=== PATIENT | female | born 1975 | race Caucasian/White ===

== ENCOUNTER 2018-01-18 06:23 | Inpatient (IN) | payer OTHER ==
[2018-01-18] MEDS ORDERED: LIDOCAINE 2% (SDV) 5 ML INJ (06:26)
[2018-01-18] MEDS ORDERED: GLYCOPYRROLATE 0.4 MG INJ (06:26)
[2018-01-18] MEDS ORDERED: ROCURONIUM 50 MG INJ (06:26)
[2018-01-18] MEDS ORDERED: MIDAZOLAM 1 MG/ML 2 ML INJ (06:26)
[2018-01-18] MEDS ORDERED: PROPOFOL 20 ML (06:26)
[2018-01-18] MEDS ORDERED: FENTAnyl 50 MCG/ML VIAL ×2 (06:26→11:22)
[2018-01-18] MEDS ORDERED: NEOSTIGMINE 3 MG/3 ML SYRINGE (06:26)
[2018-01-18] MEDS ORDERED: ATROPINE 1 MG/10 ML SYRINGE IV ×2 (06:30→11:30)
[2018-01-18] MEDS ORDERED: OXYCODONE/ACETAMINOPHEN (5/325) TAB PO ×4 (06:30→11:30)
[2018-01-18] MEDS ORDERED: FENTAnyl 50 MCG/ML VIAL IV ×3 (06:30→11:30)
[2018-01-18] MEDS ORDERED: HYDROmorphONE (0.2 MG/ML) 10ML SYG IV ×6 (06:30→11:30)
[2018-01-18] MEDS ORDERED: DIPHENHYDRAMINE 50 MG INJ IV ×2 (06:30→12:00)
[2018-01-18] MEDS ORDERED: morphine (1 MG/ML) 10ML SYRINGE IV ×6 (06:30→11:30)
[2018-01-18] MEDS ORDERED: hydrALAzine 20 MG INJ IV ×2 (06:30→11:30)
[2018-01-18] MEDS ORDERED: EPHEDrine SULFATE 50 MG/5 ML SYG IV ×2 (06:30→11:30)
[2018-01-18] MEDS ORDERED: ONDANSETRON 4 MG INJ IV ×2 (06:30→11:30)
[2018-01-18] MEDS ORDERED: LABETALOL HCL 20MG INJ IV ×2 (06:30→11:30)
[2018-01-18] MEDS ORDERED: MIDAZOLAM 1 MG/ML 2 ML INJ IV ×2 (06:30→12:00)
[2018-01-18] MEDS ORDERED: MEPERIDINE 25 MG INJ IV ×2 (06:30→11:30)
[2018-01-18] MEDS ORDERED: DEXAMETHASONE 4 MG/ML 1 ML INJ (06:31)
[2018-01-18] MEDS ORDERED: ONDANSETRON 4 MG INJ (06:31)
[2018-01-18] MEDS ORDERED: morphine SULFATE/PF (10 MG/10 ML) INJ (06:38)
[2018-01-18] MEDS ORDERED: SUCCINYLCHOLINE CHLORIDE 100 MG/5 ML SYG IV (07:00)
[2018-01-18] MEDS ORDERED: BUPIVACAINE 0.75%/DEXT (SPINAL) 2 ML INJ (07:43)
[2018-01-18] MEDS: KETOROLAC 30 MG INJ IV ×3 (08:00→20:24)
[2018-01-18] MEDS ORDERED: HYDROmorphONE 1 MG/ML SYG IV (08:00)
[2018-01-18] MEDS ORDERED: DIPHENHYDRAMINE 50 MG CAP PO (08:00)
[2018-01-18] MEDS ORDERED: BISACODYL (EC) 5 MG TAB PO (08:00)
[2018-01-18] MEDS ORDERED: ZOLPIDEM 5 MG TAB PO (08:00)
[2018-01-18] MEDS ORDERED: HYDROCODONE/APAP (5/325) TAB PO ×2 (08:00)
[2018-01-18] MEDS: SODIUM CL BACTERIOSTATIC 30 ML INJ (08:44)
[2018-01-18] MEDS: VASOPRESSIN 20 UNITS INJ (08:44)
[2018-01-18] MEDS: FENTAnyl 50 MCG/ML VIAL IV (11:28)
[2018-01-18 11:57] LABS: HEMATOCRIT 33.8 % (37.0-47.0); HEMOGLOBIN 11.1 g/dl (12.0-16.0)
[2018-01-18] MEDS: LACTATED RINGER'S 1,000 ML IV ×3 (12:14→20:23)
[2018-01-18] MEDS: METOCLOPRAMIDE 10 MG TAB PO ×2 (12:58→17:49)
[2018-01-18] MEDS: CEFAZOLIN 1 GM/50 ML (PMX) 50 ML IVPB ×2 (14:04→21:37)
[2018-01-18] MEDS ORDERED: SOD CHLORIDE 0.9% 1,000 ML IV (15:30)
[2018-01-18] MEDS: SOD CHLORIDE 0.9% 600 ML IV (15:34)
[2018-01-19] MEDS: METOCLOPRAMIDE 10 MG TAB PO ×5 (00:08→23:29)
[2018-01-19] MEDS: KETOROLAC 30 MG INJ IV ×4 (02:14→20:29)
[2018-01-19] MEDS: CEFAZOLIN 1 GM/50 ML (PMX) 50 ML IVPB ×3 (05:04→21:33)
[2018-01-19] MEDS: LACTATED RINGER'S 1,000 ML IV (05:10)
[2018-01-19 05:47] LABS: ADD MAN DIFF? NO
[2018-01-19 05:50] LABS: WHITE BLOOD COUNT 8.7 10^3/ul (4.8-10.8)
[2018-01-19 05:50] LABS: ABNORMAL IP MESSAGE 1; BASOPHILS % 0.1 % (0.0-2.0); HEMATOCRIT 21.1 % (37.0-47.0); LYMPHOCYTES % 11.6 % (15.0-51.0); MEAN CORPUSCULAR HGB CONC 32.7 g/dl (32.0-37.0); MEAN CORPUSCULAR VOLUME 85.8 fl (82.0-101.0); MEAN PLATELET VOLUME 10.1 fl (7.4-10.4); MONOCYTE # 0.9 10^3/ul (0.3-0.9); NEUTROPHIL # 6.7 10^3/ul (1.6-7.5); NEUTROPHILS % 77.8 % (39.0-77.0); PLATELET COUNT 236 10^3/UL (140-415); RED BLOOD COUNT 2.46 10^6/ul (4.20-5.40); RED CELL DISTRIBUTION WIDTH 16.5 % (11.5-14.5)
[2018-01-19 06:04] LABS: HEMOGLOBIN 6.9 g/dl (12.0-16.0); POSITIVE DIFF @See below
[2018-01-19 06:23] LABS: ANION GAP 12 (8-16); BLOOD UREA NITROGEN 11 mg/dl (7-20); CARBON DIOXIDE 26 mmol/L (21-31); CHLORIDE 104 mmol/L (97-110); CREATININE 0.57 mg/dl (0.44-1.00); POTASSIUM 4.1 mmol/L (3.5-5.1); SODIUM 138 mmol/L (135-144)
[2018-01-19 13:59] LABS: HEMATOCRIT 25.3 % (37.0-47.0); HEMOGLOBIN 8.5 g/dl (12.0-16.0)
[2018-01-19 14:04] LABS: IMMEDIATE SPIN CROSSMATCH 1 2
[2018-01-20] MEDS: KETOROLAC 30 MG INJ IV ×4 (01:59→21:05)
[2018-01-20] MEDS: CEFAZOLIN 1 GM/50 ML (PMX) 50 ML IVPB ×3 (05:35→21:06)
[2018-01-20] MEDS: METOCLOPRAMIDE 10 MG TAB PO ×3 (05:36→17:38)
[2018-01-20 05:37] LABS: ADD MAN DIFF? NO
[2018-01-20 05:38] LABS: WHITE BLOOD COUNT 11.9 10^3/ul (4.8-10.8)
[2018-01-20 05:38] LABS: BASOPHIL # 0.1 10^3/ul (0.0-0.1); BASOPHILS % 0.4 % (0.0-2.0); EOSINOPHILS % 0.2 % (0.0-7.0); HEMATOCRIT 31.2 % (37.0-47.0); HEMOGLOBIN 10.5 g/dl (12.0-16.0); LYMPHOCYTES # 1.7 10^3/ul (0.8-2.9); LYMPHOCYTES % 14.7 % (15.0-51.0); MEAN CORPUSCULAR HEMOGLOBIN 28.6 pg (29.0-33.0); MEAN CORPUSCULAR HGB CONC 33.7 g/dl (32.0-37.0); MEAN PLATELET VOLUME 9.9 fl (7.4-10.4); MONOCYTE # 0.9 10^3/ul (0.3-0.9); MONOCYTES % 7.7 % (0.0-11.0); NEUTROPHIL # 9.1 10^3/ul (1.6-7.5); NEUTROPHILS % 76.3 % (39.0-77.0); PLATELET COUNT 280 10^3/UL (140-415); RED BLOOD COUNT 3.67 10^6/ul (4.20-5.40); RED CELL DISTRIBUTION WIDTH 15.9 % (11.5-14.5)
[2018-01-20 11:02] LABS: ADD UMIC YES; UR ASCORBIC ACID NEGATIVE (NEGATIVE); UR BILIRUBIN (Dip) NEGATIVE (NEGATIVE); UR BLOOD (Dip) 3+ mg/dL (NEGATIVE); UR CLARITY CLEAR (CLEAR); UR COLOR STRAW (YELLOW); UR GLUCOSE (Dip) 3+ mg/dL (NEGATIVE); UR KETONES (Dip) NEGATIVE (NEGATIVE); UR LEUKOCYTE ESTERASE (Dip) NEGATIVE Leu/ul (NEGATIVE); UR NITRITE (Dip) NEGATIVE (NEGATIVE); UR RBC 4 /HPF (0-5); UR TOTAL PROTEIN (Dip) NEGATIVE (NEGATIVE); UR UROBILINOGEN (Dip) NEGATIVE (NEGATIVE); UR WBC 1 /HPF (0-5)
[2018-01-21] MEDS: METOCLOPRAMIDE 10 MG TAB PO ×2 (00:12→05:45)
[2018-01-21] MEDS: KETOROLAC 30 MG INJ IV (02:46)
[2018-01-21] MEDS: CEFAZOLIN 1 GM/50 ML (PMX) 50 ML IVPB (05:45)
[2018-01-21 05:55] LABS: ADD MAN DIFF? NO
[2018-01-21 06:07] LABS: WHITE BLOOD COUNT 6.8 10^3/ul (4.8-10.8)
[2018-01-21 06:07] LABS: BASOPHILS % 0.6 % (0.0-2.0); EOSINOPHILS # 0.3 10^3/ul (0.0-0.5); EOSINOPHILS % 3.8 % (0.0-7.0); HEMOGLOBIN 10.3 g/dl (12.0-16.0); LYMPHOCYTES # 1.6 10^3/ul (0.8-2.9); MEAN CORPUSCULAR HEMOGLOBIN 28.7 pg (29.0-33.0); MEAN CORPUSCULAR HGB CONC 34.3 g/dl (32.0-37.0); MEAN CORPUSCULAR VOLUME 83.6 fl (82.0-101.0); MEAN PLATELET VOLUME 9.8 fl (7.4-10.4); MONOCYTE # 0.5 10^3/ul (0.3-0.9); MONOCYTES % 6.6 % (0.0-11.0); NEUTROPHIL # 4.5 10^3/ul (1.6-7.5); NEUTROPHILS % 65.7 % (39.0-77.0); PLATELET COUNT 260 10^3/UL (140-415); RED BLOOD COUNT 3.59 10^6/ul (4.20-5.40); RED CELL DISTRIBUTION WIDTH 15.2 % (11.5-14.5)
== END 2018-01-21 14:44 | disposition home or self-care (01) | DRG 743 ==
LOC: REC 06:23 → MS1 12:24
PROC: 0UB90ZZ Excision of Uterus, Open Approach (ICD-10-PCS; principal; 2018-01-18 07:30)
PROC: 0U510ZZ Destruction of Left Ovary, Open Approach (ICD-10-PCS; 2018-01-18 07:30)
PROC: 0UN10ZZ Release Left Ovary, Open Approach (ICD-10-PCS; 2018-01-18 07:30)
PROC: 0UN90ZZ Release Uterus, Open Approach (ICD-10-PCS; 2018-01-18 07:30)
PROC: 0UU Female Reproductive System, Supplement (ICD-10-PCS; 2018-01-18 07:30)
PROC: 30233N1 Transfusion of Nonautologous Red Blood Cells into Peripheral Vein, Percutaneous Approach (ICD-10-PCS; 2018-01-18 07:41)
DX: D25.1 Intramural leiomyoma of uterus (principal); N80.0 Endometriosis of uterus; N80.1 Endometriosis of ovary; N92.0 Excessive and frequent menstruation with regular cycle; N73.6 Female pelvic peritoneal adhesions (postinfective); K66.0 Peritoneal adhesions (postprocedural) (postinfection); R10.2 Pelvic and perineal pain
CPT/HCPCS: 36430; 80051; 81001; 82565; 84520; 85014; 85018; 85025; 86850; 86900; 86901; 86920; 87086; 88305; 93005